=== PATIENT | female | born 1990 ===

== ENCOUNTER 2017-09-02 23:06 | Emergency (ER) | payer SELFPAY ==
[2017-09-02 23:16] VITALS: BMI 27.4
[2017-09-02 23:19] VITALS: BP 124/88; PULSE 80; RESP 16; TEMP 98.6; O2SAT 99
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
== END 2017-09-03 01:41 | disposition left against medical advice (07) ==
LOC: ED 23:06
DX: S09.92XA Unspecified injury of nose, initial encounter (principal); W51.XXXA Accidental striking against or bumped into by another person, initial encounter; Y92.9 Unspecified place or not applicable; R51 Headache